=== PATIENT | female | born 1955 | race African-American/Black ===

== ENCOUNTER 2024-12-07 20:40 | Emergency (ER) | payer OTHER ==
[~2024-12-07] VITALS: Ht 157.5 cm; Wt 77.3 kg
[2024-12-07 20:59] VITALS: TEMP 98.4
[2024-12-08 01:11] VITALS: BP 145/69; PULSE 66; RESP 15; O2SAT 98
== END 2024-12-08 01:11 | disposition home or self-care (01) ==
LOC: EMS 20:43
DX: S63.92XA Sprain of unspecified part of left wrist and hand, initial encounter (principal); S80.02XA Contusion of left knee, initial encounter; W01.0XXA Fall on same level from slipping, tripping and stumbling without subsequent striking against object, initial encounter; Y93.89 Activity, other specified; Y92.89 Other specified places as the place of occurrence of the external cause; Y99.8 Other external cause status
CPT/HCPCS: 99284; 73100-TC; 73130-TC; 73562-TC; Z7502; Z7610